=== PATIENT | male | born 1970 | race Caucasian/White ===

== ENCOUNTER 2023-07-12 07:00 | Inpatient (IN) ==
[2023-07-12] MEDS ORDERED: Nicotine GUM 4MG FRUIT FLAVOR PO ONE (08:04)
[2023-07-12 08:41] LABS: ABS Lymphocytes 0.7 10^3/uL (1.0-4.8); ABS Monocytes 0.2 10^3/uL (0.0-1.1); ABS Neutrophils 3.5 10^3/uL (1.5-7.6); Eosinophil % 0.6 %; Hematocrit 38.8 % (38-53); Hemoglobin 13.3 g/dL (13.2-16.3); Lymphocyte % 15.3 %; Mean Corpuscular Hemoglobin 30.5 pg (27-33); Mean Corpuscular Hgb Conc 34.4 g/dL (31-36); Mean Corpuscular Volume 88.9 fL (80-97); Mean Platelet Volume 7.8 fL (7.5-11.2); Nucleated Red Blood Cells % 0.1 /100 WBC (0.0-0.4); Platelet Count 374 10^3/uL (150-450); Red Blood Count 4.37 10^6/uL (4.06-5.63); Red Cell Distribution Width 14.2 % (12-17); White Blood Count 4.5 10^3/uL (3.6-10.2)
[2023-07-12 08:58] LABS: ALT 30 U/L (7-52); Albumin 4.3 g/dL (3.2-5.2); Albumin/Globulin Ratio 1.4 (1-3); Alkaline Phosphatase 94 U/L (35-149); Blood Urea Nitrogen 15 mg/dL (6-24); CO2 Carbon Dioxide 24 mmol/L (22-32); Chloride 101 mmol/L (101-111); Creatinine, Serum 0.78 mg/dL (0.67-1.17); Globulin 3.1 g/dL (2-4); Glucose 174 mg/dL (70-100); Sodium 136 mmol/L (135-145); Total Protein 7.4 g/dL (6.4-8.9); eGFR CKD-EPI 106.6 (>60)
[2023-07-12 09:23] LABS: Acetaminophen < 15 mcg/mL; Alcohol, S < 13 mg/dL (<13); Salicylate < 2.50 mg/dL (<30)
[2023-07-12 09:39] LABS: Urine Appearance Clear; Urine Bilirubin Negative (Negative); Urine Blood Negative (Negative); Urine Color Yellow; Urine Glucose Negative (Negative); Urine Ketones Negative (Negative); Urine Nitrite Negative (Negative); Urine Protein Negative (Negative); Urine Specific Gravity 1.006 (1.002-1.030); Urine Urobilinogen Negative (Negative)
[2023-07-12 09:46] LABS: Urine Bacteria Absent (Absent); Urine Red Blood Cell Absent (Absent); Urine White Blood Cell Absent (Absent)
[2023-07-12 09:57] LABS: Urine Benzodiazepine Screen Presumptive Positive (None Detect); Urine Cannabinoids Screen None Detected (None Detect); Urine Opiates Screen None Detected (None Detect)
[2023-07-12 10:02] LABS: Anion Gap 11 mmol/L (2-16); Potassium 4.4 mmol/L (3.5-5.0)
[2023-07-12 10:24] LABS: AST 22 U/L (13-39)
[2023-07-12] MEDS ORDERED: Al Hydrox/Mg Hydrox/Simet LIQ 30 ML UDC PO PRN (10:42)
[2023-07-12] MEDS: Nicotine Lozenge mini 4 MG LOZNG.MINI MT PRN ×3 (15:07→20:19)
[2023-07-13] MEDS: Nicotine Lozenge mini 4 MG LOZNG.MINI MT PRN ×6 (08:19→21:13)
[2023-07-13 08:23] LABS: HDL Cholesterol 55.3 mg/dL
[2023-07-13] MEDS: Methadone ORALSYR CONC LIQ 10 MG/ML PO SCH (09:00)
[2023-07-14] MEDS: Nicotine Lozenge mini 4 MG LOZNG.MINI MT PRN ×5 (08:36→21:33)
[2023-07-14] MEDS: Methadone ORALSYR CONC LIQ 10 MG/ML PO SCH (08:37)
[2023-07-14] MEDS ORDERED: Senna TAB 8.6 mg TAB PO PRN (12:46)
[2023-07-14] MEDS ORDERED: Polyethylene Glycol 3350 17 GM PACKET PO PRN (12:46)
[2023-07-14] MEDS ORDERED: Magnesium Hydroxide LIQ 30 ML UDC PO PRN (12:46)
[2023-07-14] MEDS ORDERED: Magnesium Hydroxide LIQ 30 ML UDC PO SCH (13:00)
[2023-07-14] MEDS: Magnesium Hydroxide LIQ 30 ML UDC PO SCH ×2 (17:11→23:01)
[2023-07-15] MEDS: Methadone ORALSYR CONC LIQ 10 MG/ML PO SCH (07:52)
[2023-07-15] MEDS: Vitamin THERAPEUTIC TAB PO SCH (07:52)
[2023-07-15] MEDS: Nicotine Lozenge mini 4 MG LOZNG.MINI MT PRN ×5 (08:22→20:32)
[2023-07-15] MEDS: Magnesium Hydroxide LIQ 30 ML UDC PO SCH ×2 (12:22→22:18)
[2023-07-16] MEDS: Vitamin THERAPEUTIC TAB PO SCH (08:07)
[2023-07-16] MEDS: Methadone ORALSYR CONC LIQ 10 MG/ML PO SCH (08:07)
[2023-07-16] MEDS: Nicotine Lozenge mini 4 MG LOZNG.MINI MT PRN ×6 (08:08→20:58)
[2023-07-16] MEDS: Magnesium Hydroxide LIQ 30 ML UDC PO SCH ×2 (10:52→21:00)
[2023-07-17] MEDS: Vitamin THERAPEUTIC TAB PO SCH (07:46)
[2023-07-17] MEDS: Methadone ORALSYR CONC LIQ 10 MG/ML PO SCH (07:46)
[2023-07-17] MEDS: Nicotine Lozenge mini 4 MG LOZNG.MINI MT PRN ×5 (07:47→20:28)
[2023-07-17] MEDS: Magnesium Hydroxide LIQ 30 ML UDC PO SCH ×2 (10:37→21:05)
[2023-07-18] MEDS: Methadone ORALSYR CONC LIQ 10 MG/ML PO SCH (08:06)
[2023-07-18] MEDS: Vitamin THERAPEUTIC TAB PO SCH (08:09)
[2023-07-18] MEDS: Nicotine Lozenge mini 4 MG LOZNG.MINI MT PRN ×7 (08:11→22:15)
[2023-07-18] MEDS: Magnesium Hydroxide LIQ 30 ML UDC PO SCH ×2 (12:20→22:14)
[2023-07-19] MEDS: Methadone ORALSYR CONC LIQ 10 MG/ML PO SCH (07:53)
[2023-07-19] MEDS: Vitamin THERAPEUTIC TAB PO SCH (08:09)
[2023-07-19] MEDS: Nicotine Lozenge mini 4 MG LOZNG.MINI MT PRN ×4 (11:06→20:11)
[2023-07-19] MEDS: Magnesium Hydroxide LIQ 30 ML UDC PO SCH (12:05)
[2023-07-20] MEDS: Vitamin THERAPEUTIC TAB PO SCH (08:55)
[2023-07-20 08:59] VITALS: BP 131/84
[2023-07-20] MEDS: Nicotine Lozenge mini 4 MG LOZNG.MINI MT PRN ×3 (09:12→13:45)
[2023-07-20] MEDS: Methadone ORALSYR CONC LIQ 10 MG/ML PO SCH (09:15)
[2023-07-20] MEDS: Magnesium Hydroxide LIQ 30 ML UDC PO SCH ×2 (11:17→12:33)
== END 2023-07-20 15:04 | disposition home or self-care (01) | DRG 751 ==
LOC: ED 07:00 → EDHOLD 10:42 → BSU 12:52
PROVIDERS: ADMIT Psychiatry & Neurology Psychiatry; ATTEND Psychiatry & Neurology Psychiatry

== ENCOUNTER 2023-08-11 11:15 | Inpatient (IN) ==
[2023-08-11 12:50] LABS: Urine Benzodiazepine Screen Presumptive Positive (None Detect); Urine Cannabinoids Screen None Detected (None Detect); Urine Opiates Screen None Detected (None Detect)
[2023-08-11] MEDS ORDERED: Al Hydrox/Mg Hydrox/Simet LIQ 30 ML UDC PO PRN (12:59)
[2023-08-11] MEDS ORDERED: Senna TAB 8.6 mg TAB PO PRN (13:04)
[2023-08-11] MEDS: Nicotine Lozenge mini 4 MG LOZNG.MINI MT PRN ×2 (15:18→20:27)
[2023-08-11] MEDS: Magnesium Hydroxide LIQ 30 ML UDC PO SCH (21:18)
[2023-08-12] MEDS: Multivitamins/Minerals TAB PO SCH (08:18)
[2023-08-12] MEDS: Methadone ORALSYR CONC LIQ 10 MG/ML PO SCH (08:24)
[2023-08-12] MEDS: Nicotine Lozenge mini 4 MG LOZNG.MINI MT PRN ×3 (08:26→20:37)
[2023-08-12] MEDS: Magnesium Hydroxide LIQ 30 ML UDC PO SCH ×2 (10:50→21:20)
[2023-08-13] MEDS: Multivitamins/Minerals TAB PO SCH (08:21)
[2023-08-13] MEDS: Methadone ORALSYR CONC LIQ 10 MG/ML PO SCH (08:21)
[2023-08-13] MEDS: Nicotine Lozenge mini 4 MG LOZNG.MINI MT PRN ×3 (08:22→20:48)
[2023-08-13] MEDS: Magnesium Hydroxide LIQ 30 ML UDC PO SCH (16:01)
[2023-08-14] MEDS: Multivitamins/Minerals TAB PO SCH (08:44)
[2023-08-14] MEDS: Methadone ORALSYR CONC LIQ 10 MG/ML PO SCH (08:45)
[2023-08-14] MEDS: Nicotine Lozenge mini 4 MG LOZNG.MINI MT PRN ×4 (08:45→21:12)
[2023-08-14] MEDS: Magnesium Hydroxide LIQ 30 ML UDC PO SCH ×3 (11:45→22:02)
[2023-08-15] MEDS: Methadone ORALSYR CONC LIQ 10 MG/ML PO SCH (08:20)
[2023-08-15] MEDS: Multivitamins/Minerals TAB PO SCH (08:20)
[2023-08-15] MEDS: Nicotine Lozenge mini 4 MG LOZNG.MINI MT PRN ×5 (08:23→21:04)
[2023-08-15] MEDS: Magnesium Hydroxide LIQ 30 ML UDC PO SCH (11:50)
[2023-08-16] MEDS: Magnesium Hydroxide LIQ 30 ML UDC PO SCH ×3 (01:55→22:36)
[2023-08-16] MEDS: Multivitamins/Minerals TAB PO SCH (08:07)
[2023-08-16] MEDS: Nicotine Lozenge mini 4 MG LOZNG.MINI MT PRN ×6 (08:10→21:35)
[2023-08-16] MEDS: Methadone ORALSYR CONC LIQ 10 MG/ML PO SCH (08:13)
[2023-08-16] MEDS: Polyethylene Glycol 3350 17 GM PACKET PO PRN (20:26)
[2023-08-17] MEDS: Multivitamins/Minerals TAB PO SCH (08:07)
[2023-08-17] MEDS: Methadone ORALSYR CONC LIQ 10 MG/ML PO SCH (08:13)
[2023-08-17] MEDS: Polyethylene Glycol 3350 17 GM PACKET PO PRN (08:17)
[2023-08-17] MEDS: Magnesium Hydroxide LIQ 30 ML UDC PO SCH (12:25)
[2023-08-17] MEDS: Nicotine Lozenge mini 4 MG LOZNG.MINI MT PRN ×4 (12:27→20:28)
[2023-08-17] MEDS: Polyethylene Glycol 3350 17 GM PACKET PO SCH (20:25)
[2023-08-17] MEDS: Senna TAB 8.6 mg TAB PO SCH (20:26)
[2023-08-18] MEDS: Multivitamins/Minerals TAB PO SCH (08:05)
[2023-08-18] MEDS: Methadone ORALSYR CONC LIQ 10 MG/ML PO SCH (08:06)
[2023-08-18] MEDS: Polyethylene Glycol 3350 17 GM PACKET PO SCH ×2 (08:06→21:01)
[2023-08-18] MEDS: Nicotine Lozenge mini 4 MG LOZNG.MINI MT PRN ×4 (12:15→20:50)
[2023-08-18] MEDS: Senna TAB 8.6 mg TAB PO SCH (20:46)
[2023-08-18] MEDS: Magnesium Hydroxide LIQ 30 ML UDC PO SCH (22:07)
[2023-08-19] MEDS: Methadone ORALSYR CONC LIQ 10 MG/ML PO SCH (08:41)
[2023-08-19] MEDS: Polyethylene Glycol 3350 17 GM PACKET PO SCH ×2 (08:42→20:45)
[2023-08-19] MEDS: Nicotine Lozenge mini 4 MG LOZNG.MINI MT PRN ×4 (08:42→20:33)
[2023-08-19] MEDS: Multivitamins/Minerals TAB PO SCH (08:42)
[2023-08-19] MEDS: Magnesium Hydroxide LIQ 30 ML UDC PO SCH ×4 (10:42→23:25)
[2023-08-19] MEDS: Senna TAB 8.6 mg TAB PO SCH (20:45)
[2023-08-20] MEDS: Multivitamins/Minerals TAB PO SCH (08:47)
[2023-08-20] MEDS: Polyethylene Glycol 3350 17 GM PACKET PO SCH (08:48)
[2023-08-20] MEDS: Nicotine Lozenge mini 4 MG LOZNG.MINI MT PRN ×5 (08:48→20:33)
[2023-08-20] MEDS: Methadone ORALSYR CONC LIQ 10 MG/ML PO SCH (08:48)
[2023-08-20] MEDS: Magnesium Hydroxide LIQ 30 ML UDC PO SCH (11:01)
[2023-08-21] MEDS: Polyethylene Glycol 3350 17 GM PACKET PO SCH ×3 (00:23→22:12)
[2023-08-21] MEDS: Magnesium Hydroxide LIQ 30 ML UDC PO SCH ×3 (00:23→22:12)
[2023-08-21] MEDS: Senna TAB 8.6 mg TAB PO SCH ×2 (00:23→22:12)
[2023-08-21] MEDS: Methadone ORALSYR CONC LIQ 10 MG/ML PO SCH (08:27)
[2023-08-21] MEDS: Multivitamins/Minerals TAB PO SCH (08:28)
[2023-08-21] MEDS: Nicotine Lozenge mini 4 MG LOZNG.MINI MT PRN ×4 (08:28→19:20)
[2023-08-22] MEDS: Multivitamins/Minerals TAB PO SCH (08:04)
[2023-08-22] MEDS: Methadone ORALSYR CONC LIQ 10 MG/ML PO SCH (08:04)
[2023-08-22] MEDS: Polyethylene Glycol 3350 17 GM PACKET PO SCH (08:04)
[2023-08-22] MEDS: Nicotine Lozenge mini 4 MG LOZNG.MINI MT PRN ×2 (08:06→10:50)
[2023-08-22 09:55] VITALS: BP 115/67
[2023-08-22] MEDS: Magnesium Hydroxide LIQ 30 ML UDC PO SCH (10:44)
== END 2023-08-22 12:25 | disposition home or self-care (01) | DRG 776 ==
LOC: ED 11:15 → EDHOLD 12:59 → BSU 13:39
PROVIDERS: ADMIT Psychiatry & Neurology Psychiatry; ATTEND Psychiatry & Neurology Psychiatry